=== PATIENT | male | born 1945 | race Caucasian/White ===

== ENCOUNTER → 2018-08-04 | Outpatient (CLI) | payer MEDICARE ==
[2016-01-06 11:00] VITALS: BP 133/60
[~2018-08-04] MED LIST: AMLO5TAB7 PO; AMOX1TAB61 PO; ASPI-630 PO; ATOR40TA59 PO; CALC500T30 PO; CINN500C2 PO; CLOP75TA PO; GABA-585 PO; HYDR-2868 PO; INSU100C4 SQ; LISI-130 PO; MAGN250T10 PO; MULT-18 PO; OMEG500C PO; OXYC1TAB15 PO; RANI300C PO; THYR30TA PO; ZINC100T PO
--- NOTE | 2018-08-06 12:12 | RAD ---
MR#: [id number] Date of Study: 08/04/2018 Ordering Physician: TAISHA VILLALTA, Referring Physician: TAISHA VILLALTA, Tech: SONG Whitman, RDMS, RTR APPROVED REPORT Patient Location: OUT-PATIENT Indications Non-healing Ulcer: RLE BELOW KNEE AMPUTATION Risk Factors Diabetes VELOCITY AND DOPPLER WAVEFORM ANALYSIS RIGHT cm/secWaveformSeverity LEFT cm/secWaveform Severity pCFA 120.3TriphasicpCFA 142.2Biphasic Prof Fem Art. 84.6Prof Fem Art. 75.6 Fem Art Prox. 94.0TriphasicFem Art Prox. 85.7Biphasic Fem Art Mid. 53.8TriphasicFem Art Mid. 82.8Biphasic Fem Art Dist. 60.7TriphasicFem Art Dist. 50.0Triphasic Pop Art(Fossa) 41.8BiphasicPop Art(AK) 76.9Biphasic PROJECT/PRODUCTION MANAGER IMAGING Dist. PROJECT/PRODUCTION MANAGER IMAGING Dist. 42.8Monophasic Per Art Dist.Per Art Dist.26.0Monophasic EULALIO Dist. EULALIO Dist. 98.3Monophasic DPA DPA 50Monophasic Findings Grayscale images of the bilateral lower ext arterial vessels reveal moderate diffuse plaque. There is a previous right lower extremity below-knee amputation. On the right spectral waveforms are mostly t riphasic and biphasic up to the popliteal artery. Velocities are grossly within normal limits. On the left velocities are grossly within normal limits mostly with biphasic waveforms to the poplite al segment. Below the knee there is three-vessel runoff but with significantly diminished flow in the peroneal artery in a monophasic wave pattern. The posterior tibial and anterior tibial vessels also demonstrate monophasic wave pattern likely due to diffuse atherosclerotic disease. No focal high-grad e stenosis is identified. Critical Notification Critical Value: No <Conclusion> 1. No focal high-grade stenosis identified in the bilateral lower extremity arterial Doppler study. 2. Monophasic waveforms in the left lower extremity below-knee vessels likely due to diffuse atherosc lerosis and probable two-vessel runoff. Signed by : Nate Estevez, Electronically Approved : 08/06/2018 12:11:01
== END | disposition home or self-care (01) ==
LOC: US 08:44
PROVIDERS: ATTEND Internal Medicine Cardiovascular Disease
DX: L97.828 Non-pressure chronic ulcer of other part of left lower leg with other specified severity (principal); E11.9 Type 2 diabetes mellitus without complications
CPT/HCPCS: 93925

== ENCOUNTER 2021-02-22 11:11 | Day surgery (SDC) | payer MEDICARE, BC ==
[~2021-02-22] VITALS: Ht 182.9 cm; Wt 113.0 kg
[~2021-02-22 11:11] MED LIST changes: +AMLO-186 PO; -AMLO5TAB7 PO; +APIX5TAB PO; +CARV25TA2 PO; +CLIN300C9 PO; +GABA600T7 PO; +HYDROmorphone 2 MG/ML VIAL IVP PRN; +IV RINGERS,LACTATED 1000ML 1,000 ML IV SCH; +LEVO50TA PO; +LISI20TA18 PO; +MEXI150C PO; +MORPHINE SULFATE 2 MG/ML INJ. IVP PRN; +MULT-505 PO; +MUPI22OI2 TP; +OMEG1CAP6 PO; +PROCHLORPERAZINE 10 MG/2 ML VIAL. IVP PRN; +fentaNYL PF VIAL 100 MCG/2 ML VIAL IVP PRN
[2021-02-22 11:46] VITALS: BP 147/71
[2021-02-22 12:27] LABS: BASO % 1 % (0-3); EOS # 0.2 x10^3/uL (0.0-0.7); EOS % 5 % (0-3); HEMATOCRIT 39.3 % (39.0-53.0); HEMOGLOBIN 13.2 g/dL (13.0-17.5); LYMPH # 1.1 x10^3/uL (1.0-4.8); LYMPH % 22 % (24-48); MEAN CORPUSCULAR HEMOGLOBIN 30 pg (25-35); MEAN CORPUSCULAR HGB CONC 34 g/dL (31-37); MEAN CORPUSCULAR VOLUME 89 fL (79-100); MONO # 0.5 x10^3/uL (0.0-1.1); MONO % 11 % (0-9); NEUT # 2.9 x10^3/uL (1.8-7.7); NEUT % 61 % (31-73); PLATELET COUNT 160 x10^3/uL (140-400); RED BLOOD COUNT 4.43 x10^6/uL (4.30-5.70); RED CELL DISTRIBUTION WIDTH 16.5 % (11.5-14.5); WHITE BLOOD COUNT 4.8 x10^3/uL (4.0-11.0)
[2021-02-22 12:36] LABS: CALCIUM 8.7 mg/dL (8.5-10.1); CREATININE 1.8 mg/dL (0.7-1.3); GFR 36.8; POTASSIUM 4.8 mmol/L (3.5-5.1)
[2021-02-22 12:41] LABS: ALBUMIN 3.7 g/dL (3.4-5.0); ALBUMIN/GLOBULIN RATIO 1.2 (1.0-1.7); C-REACTIVE PROTEIN 1.7 mg/L (0-3.3); TOTAL BILIRUBIN 0.4 mg/dL (0.2-1.0); TOTAL PROTEIN 6.8 g/dL (6.4-8.2)
[2021-02-22] MEDS ORDERED: PROPOFOL 10 MG/ML (20ML) VIAL. IV ONE (12:50)
[2021-02-22] MEDS ORDERED: LIDOCAINE 2% PF 5 ML VIAL. ONE (12:50)
[2021-02-22] MEDS ORDERED: DEXAMETHASONE SOD PHOS 4 MG/ML VIAL ONE ×3 (12:50→13:14)
[2021-02-22] MEDS ORDERED: ONDANSETRON PF 4 MG/2 ML VIAL. ONE (12:50)
[2021-02-22] MEDS ORDERED: fentaNYL PF VIAL 100 MCG/2 ML VIAL ONE (12:52)
--- NOTE | 2021-02-22 12:54 | SSS ---
ADMIT DATE: 02/22/2021 CHIEF COMPLAINT: Request for preoperative evaluation. HISTORY OF PRESENT ILLNESS: The patient is a pleasant 75-year-old male well known to our service. He has got severe peripheral vascular disease from diabetes. He has already had a right below-knee amputation. Now, the left foot is slowly developing disease. The left fourth toe is scheduled to be amputated today. We have been requested for preoperative evaluation and treatment of comorbidities. PAST MEDICAL HISTORY: Right BKA, diabetes, hypertension, hyperlipidemia, arrhythmias, defibrillator, peripheral vascular disease. ALLERGIES: None. FAMILY HISTORY: Diabetes. SOCIAL HISTORY: He is retired. He does not drink, smoke or take drugs. Used to drive heavy equipment. MEDICATIONS: Reviewed, please refer to the MRAD. REVIEW OF SYSTEMS: GENERAL: No history of weight change, weakness or fevers. SKIN: No bruising, hair changes or rashes. EYES: No blurred, double or loss of vision. NOSE AND THROAT: No history of nosebleeds, hoarseness or sore throat. HEART: No history of palpitations, chest pain or shortness of breath on exertion. LUNGS: Denies cough, hemoptysis, wheezing or shortness of breath. GASTROINTESTINAL: Denies changes in appetite, nausea, vomiting, diarrhea or constipation. GENITOURINARY: No history of frequency, urgency, hesitancy or nocturia. NEUROLOGIC: Denies history of numbness, tingling, tremor or weakness. PSYCHIATRIC: No history of panic, anxiety or depression. ENDOCRINE: No history of heat or cold intolerance, polyuria or polydipsia. EXTREMITIES: He complains of left fourth toe pain and drainage. PHYSICAL EXAMINATION: VITALS: Within normal limits and are stable. GENERAL: No apparent distress. Alert and oriented. HEENT: Normal cephalic atraumatic, external auditory canals are patent. EYES: Extraocular muscles are intact, pupils are equally round and reactive to light and accommodation. MUSCULOSKELETAL: Well developed, well nourished, good range of motion. ENDOCRINE: No thyromegaly was palpated. LYMPHATICS: No cervical chain or axillary nodes were noted. HEMATOPOIETIC: No bruising. NECK: Supple, no JVD, no thyromegaly was noted. LUNGS: Clear to auscultation in all lung mora without rhonchi or wheezing. HEART: RRR, S1, S2 present. Peripheral pulses intact, no obvious murmurs were noted. ABDOMEN: Soft, nontender. Positive bowel sounds no organomegaly, normal bowel sounds. EXTREMITIES: The right lower extremity has an amputation below the knee. The left foot is externally rotated. He has got a Charcot joint. The left fourth toe has clean, dry and intact dressing. NEUROLOGIC: Normal speech, normal tone. A and O x 3, moves all extremities, no obvious focal deficits. PSYCHIATRIC: Normal affect, normal mood. Stable. SKIN: No ulcerations or rashes, good skin turgor, no jaundice. VASCULAR: Good capillary refill, neurovascular bundle appears to be intact. ASSESSMENT AND PLAN: Severe peripheral vascular disease secondary to diabetes with left fourth toe wound. Clinically, he is doing well. I suspect he is at low risk for intraoperative or postoperative complications, so he is cleared for surgery. After surgery continue home meds. DVT prophylaxis. Full code. If he needs to be admitted, we can assist with that. If he gets discharged, I would have him see his doctor in a week. KELI DR: Janeth TID: [id number]
[2021-02-22] MEDS ORDERED: POVIDONE-IODINE 10% TOPICAL OINTMENT 28GM TUBE. TP ONE (13:14)
[2021-02-22] MEDS ORDERED: LIDOCAINE 1% Multi-Dose 20 ML VIAL. ONE (13:14)
[2021-02-22] MEDS ORDERED: BUPIVACAINE MPF 0.5% 30 ML VIAL. ONE (13:14)
[2021-02-22] MEDS ORDERED: PHENYLEPHRINE in 0.9% NACL PF 1 MG/10 ML SYRINGE. IV ONE (13:59)
[2021-02-22] MEDS ORDERED: SEVOFLURANE 61 TO 120 MINUTES. IH ONE (13:59)
[2021-02-22] MEDS ORDERED: ePHEDrine PF IN SALINE 50 MG/10 ML SYRINGE. IV ONE (14:02)
--- NOTE | 2021-02-22 14:31 | PDOC4 ---
OPERATIVE NOTE: Surgeon: Jael Pre op diagnosis Osteomyelitis distal phalanx 4th toe left foot Post op diagnosis Same Procedure: distal phalanx resection 4th toe left foot Anesthesia: LMA with local Hemostasis: left ankle tourniquet at 250mmHg EBL 2mL Pathology: distal phalanx 4th toe left foot Patient tolerated both anesthesia and procedure well and transferred to PACU with VSS and VSI to left foot ANIYA TORREZ DPM Feb 22, 2021 14:31
[2021-02-22 14:38] VITALS: BP_DIAS 79
[2021-02-22 14:53] VITALS: BP_SYST 4
--- NOTE | 2021-02-22 15:20 | OP ---
DATE OF SURGERY: 02/22/2021 PREOPERATIVE DIAGNOSIS: Osteomyelitis, fourth digit distal phalanx, left foot. POSTOPERATIVE DIAGNOSIS: Osteomyelitis, fourth digit distal phalanx, left foot. PROCEDURE: Resection of distal phalanx, left foot, fourth toe. SURGEON: Wisam Elder DPM. ANESTHESIA: LMA with local. HEMOSTASIS: Left ankle tourniquet at 250 mmHg. INDICATIONS: The patient is a 75-year-old male with a chronic nonhealing wound to the distal tip of his fourth digit of the left foot. He was being treated with local wound care. X-ray showed concern for resorption of the distal phalanx, distal tuft and he was unable to get an MRI due to his defibrillator. Thus, a CT scan was then ordered and also showed to have questionable osteomyelitis of the fourth distal phalanx. It continued to not heal with local wound care and oral antibiotics. Thus, he was recommended to perform distal phalanx resection with closure of the fourth digit, left foot. Discussed with the patient possible risks, benefits and complications to include loss of toe, foot, limb or life, delayed or nonhealing, need for further surgery, infection, blood clot to the leg, blood clot to the lung, transfer lesion, re-ulceration, numbness, tingling, burning pain, chronic regional pain syndrome. All questions were answered. No guarantees made. DESCRIPTION OF PROCEDURE: The patient was transported to the operating room via cart and placed on the operating table in supine position. He was given IV Ancef preoperatively. The well-padded tourniquet was placed over the left ankle. The left foot was then prepped and draped in the usual aseptic manner. A block was given to the fourth toe consisting of 1:1 mixture of 1% lidocaine plain and 0.25% Marcaine plain, 7 mL total. An Esmarch bandage was used to exsanguinate the left foot and left ankle tourniquet was inflated to 250 mmHg. Reasonable timeout was taken before the injection and attention was directed to the fourth toe where 2 converging semielliptical incisions were made to resect the ulceration at the distal tip of the phalanx including the nail. Next, the distal phalanx was then removed from the distal interphalangeal joint, disarticulated and sent to pathology. Small vessels were cauterized. Next, the cartilage from the middle phalanx was resected to allow for bleeding granular base tissue and sent to pathology for clearance fragment. Wound culture was taken, aerobic and anaerobic, and the wound was then copiously irrigated with sterile saline. The skin was reapproximated with 4-0 nylon. Applied Betadine-soaked Adaptic gauze, 4 x 4s, Kerlix bandage roll, abdominal pad and an Shravan bandage. The patient tolerated anesthesia and procedure well. Tourniquet was deflated and good perfusion was noted to all digits of the left foot. The patient tolerated both anesthesia and procedure well. Postoperative instructions are in the chart. PATY/CESAR DR: Yudith TID: [id number]
--- NOTE | 2021-02-22 16:10 | RAD ---
EXAM: Left foot, 3 views. HISTORY: Postoperative evaluation. COMPARISON: None. FINDINGS: 3 views of the left foot are obtained. There are findings consistent with near complete amp utation of the second distal phalanx. This is likely chronic. The tuft of the fourth distal phalanx i s absent. There is severe midfoot and hindfoot osteoarthritis with bony remodeling. There is a small plantar spur. There are vascular calcifications. There is hyperextension of the fifth metatarsal phal angeal joint. IMPRESSION: 1. Absent tuft of the fourth distal phalanx. This may be due to relative recent amputation or destruc tive osseous changes due to osteomyelitis. 2. Remote amputation of the second distal phalanx. 3. Severe osteoarthritis involving the midfoot and hindfoot with associated bony remodeling. 4. Plantar spur. Electronically signed by: Ingrid Rivera MD (02/22/2021 4:08 PM) [id number]
== END 2021-02-22 15:56 | disposition home or self-care (01) ==
LOC: SURG 11:11
PROVIDERS: ATTEND Podiatrist Foot & Ankle Surgery
DX: M86.8X7 Other osteomyelitis, ankle and foot (principal); I25.10 Atherosclerotic heart disease of native coronary artery without angina pectoris; E78.00 Pure hypercholesterolemia, unspecified; I48.91 Unspecified atrial fibrillation; E66.9 Obesity, unspecified; K21.9 Gastro-esophageal reflux disease without esophagitis; M19.90 Unspecified osteoarthritis, unspecified site; I12.9 Hypertensive chronic kidney disease with stage 1 through stage 4 chronic kidney disease, or unspecified chronic kidney disease; E11.22 Type 2 diabetes mellitus with diabetic chronic kidney disease; N18.30 Chronic kidney disease, stage 3 unspecified; E03.9 Hypothyroidism, unspecified; Z86.73 Personal history of transient ischemic attack (TIA), and cerebral infarction without residual deficits; Z79.84 Long term (current) use of oral hypoglycemic drugs; Z79.899 Other long term (current) drug therapy; Z98.890 Other specified postprocedural states; Z88.8 Allergy status to other drugs, medicaments and biological substances
CPT/HCPCS: 28124; 36415; 73630; 80053; 82962; 85025; 85651; 86140; 87071; 87075; A4209; A4930; A6222; A6253; A6449; J0690; J1100; J2370; J2405; J2704; J3010; J3490; A4657; A6443

== ENCOUNTER 2021-08-23 09:17 | Day surgery (SDC) | payer MEDICARE, BC ==
[~2021-08-23] VITALS: Ht 182.9 cm; Wt 113.0 kg
[~2021-08-23 09:17] MED LIST changes: +AMIO200T53 PO; +AMOX250S20 PO; +CLIN-94 PO; -CLIN300C9 PO; +FURO40TA4 PO; +HYDROmorphone 2 MG/ML INJ. IVP PRN; -HYDROmorphone 2 MG/ML VIAL IVP PRN; +LEVO25TA4 PO; +LINE600T12 PO; +OMEP20CA16 PO; +VANCOMYCIN 1GM IVPB FOR OMNI 250 ML IV PRN
[2021-08-23 10:02] VITALS: BP 144/67
[2021-08-23] MEDS ORDERED: LIDOCAINE 2% PF 5 ML VIAL. ONE (10:06)
[2021-08-23] MEDS ORDERED: PROPOFOL 10 MG/ML (20ML) VIAL. IV ONE (10:06)
[2021-08-23] MEDS ORDERED: DEXAMETHASONE SOD PHOS 4 MG/ML VIAL ONE ×2 (10:06→11:47)
[2021-08-23] MEDS ORDERED: PHENYLEPHRINE in 0.9% NACL PF 1 MG/10 ML SYRINGE. IV ONE (10:06)
[2021-08-23] MEDS ORDERED: ONDANSETRON PF 4 MG/2 ML VIAL. ONE (10:06)
[2021-08-23 10:38] LABS: CALCIUM 8.1 mg/dL (8.5-10.1); GFR 32.5; POTASSIUM 4.1 mmol/L (3.5-5.1)
[2021-08-23 10:44] LABS: ALBUMIN 3.3 g/dL (3.4-5.0); ALBUMIN/GLOBULIN RATIO 0.8 (1.0-1.7); TOTAL BILIRUBIN 0.3 mg/dL (0.2-1.0); TOTAL PROTEIN 7.2 g/dL (6.4-8.2)
[2021-08-23] MEDS ORDERED: LIDOCAINE 1% Multi-Dose 20 ML VIAL. ONE (10:44)
[2021-08-23] MEDS ORDERED: BUPIVACAINE MPF 0.5% 30 ML VIAL. ONE (10:44)
[2021-08-23 10:55] LABS: BASO % 1 % (0-3); EOS # 0.2 x10^3/uL (0.0-0.7); EOS % 3 % (0-3); HEMATOCRIT 36.7 % (39.0-53.0); HEMOGLOBIN 12.3 g/dL (13.0-17.5); LYMPH # 1.1 x10^3/uL (1.0-4.8); LYMPH % 18 % (24-48); MEAN CORPUSCULAR HEMOGLOBIN 31 pg (25-35); MEAN CORPUSCULAR HGB CONC 34 g/dL (31-37); MEAN CORPUSCULAR VOLUME 91 fL (79-100); MONO # 0.5 x10^3/uL (0.0-1.1); MONO % 8 % (0-9); NEUT # 4.5 x10^3/uL (1.8-7.7); NEUT % 71 % (31-73); PLATELET COUNT 181 x10^3/uL (140-400); RED BLOOD COUNT 4.03 x10^6/uL (4.30-5.70); WHITE BLOOD COUNT 6.3 x10^3/uL (4.0-11.0)
--- NOTE | 2021-08-23 12:44 | PDOC4 ---
OPERATIVE NOTE: Surgeon: Jael Pre operative diagnosis: Osteomyelitis distal phalanx 3rd toe left Post operative diagnosis: same Procedure: phalangectomy distal phalanx 3rd toe left Anesthesia: MAC with local Hemostasis: left ankle tourniquet at 250mmHg EBL: 1mL Materials: 4-0 nylon Intraoperative findings: note destruction of distal phalanx 3rd toe with white glistening cartilage to middle phalanx head. no proximal sinus tract. note blood blister to medial planar midfoot with no surrounding cellulitis. Pathology Specimen: Distal phalanx and head of middle phalanx left 3rd toe Patient tolerated both anesthesia and procedure well, transferred to PACU with VSS and VSI to left foot ANIYA TORREZ DPM Aug 23, 2021 12:44
--- NOTE | 2021-08-23 13:37 | OP ---
DATE OF SURGERY: 08/23/2021 PREOPERATIVE DIAGNOSIS: Osteomyelitis, third toe, left foot. POSTOPERATIVE DIAGNOSIS: Osteomyelitis, third toe, left foot. PROCEDURES: Third toe phalangectomy, left. ANESTHESIA: MAC with local. SURGEON: Wisam Elder DPM HEMOSTASIS: Left ankle tourniquet at 250 mmHg. INDICATIONS: The patient is a 76-year-old male with past medical history significant for diabetes, peripheral neuropathy, previous right lower extremity amputation, previous partial digit amputations to the left and peripheral vascular disease. The patient was seen in the clinic 1 week prior and noted to have a full-thickness ulceration with positive probe to bone of the third toe distal phalanx. A bone biopsy was taken and sent for microbiology and pathology showed bone biopsy was positive for osteomyelitis. He is being treated with levofloxacin and now Zyvox p.o. daily and discussed with the patient the possible risks, benefits and complications to include delayed or nonhealing, need for further surgery, loss of toe, foot, limb or life, infection, blood clot to the leg, blood clot to the lung, chronic pain, need for further surgery. The patient understands and agrees with the above procedure. No guarantees made. The patient was also noted to have a new blood blister formation to the medial plantar midfoot. The patient has frequent ulcerations to this area and was just seen yesterday in the [place] location and no ulceration was noted at that time. He states he has been minimal activity; however, his states that he has been very active. DESCRIPTION OF PROCEDURE: The patient was transported to the operating room via cart and placed on the operating room table in supine position. Following verification of the surgery, the patient's limb was performed. A local block was administered to the third toe, left foot consisting of a 1:1 mixture of 1% lidocaine plain and 0.5% Marcaine plain. The well-padded tourniquet was placed over the left ankle and the left foot was then prepped and draped in the usual aseptic manner. To exsanguinate the left lower extremity, the patient's leg was elevated and the tourniquet was inflated to 250 mmHg. Attention was directed to the third toe where a fishmouth incision was made at the level of the distal interphalangeal joint. This was cut out the ulceration to the distal tip and the distal phalanx was disarticulated at the distal interphalangeal joint. It was noted to be absorption of the distal phalanx at the previous biopsy site. The middle phalanx was noted to be white glistening cartilage, resected the cartilage and sent to pathology as well. The wound culture was then taken, aerobic and anaerobic. The wound was copiously irrigated with sterile saline and then the skin was closed with 4-0 nylon. A bandage was applied with Betadine-soaked Adaptic gauze, 4 x 4s, Kerlix bandage, Shravan bandage. Also noted that there was a blood blister to the medial mid foot of the left. At this point, we deroofed the blister and applied Betadine-soaked gauze and wrapped with Kerlix and Shravan bandage. The patient tolerated both anesthesia and procedure well, transported to the PACU in stable condition with vital signs stable and vascular status intact to the left foot. Tourniquet had been deflated prior to closure as we noted there was a venous tourniquet with bleeding upon removal, achieve hemostasis and closure was successful. Postop instructions are in the chart. DOUGLAS DR: Yudith TID: [id number]
[2021-08-23 13:41] VITALS: BP 132/70
--- NOTE | 2021-08-23 14:52 | RAD ---
EXAM: Left foot, 3 views. HISTORY: Postoperative evaluation. COMPARISON: 03/28/2021 FINDINGS: 3 views of the left foot are obtained. There has been amputation of the second toe at the b ase of the middle phalanx. There has been amputation of the third toe at the mid aspect of the middle phalanx. There has been amputation of the fourth phalanx at the mid middle phalanx. There is bandage material overlying the third and fourth toes. There is severe midfoot degenerative subchondral scler osis, spurring and bony remodeling. There is a small plantar spur. There are vascular calcifications. IMPRESSION: 1. Interval amputation of the third toe at the mid aspect of the middle phalanx. There are prior limi tations of the second and fourth toes at the mid middle phalanges. 2. Severe hindfoot and midfoot osteoarthritis with associated bony remodeling. 3. Small plantar spur. Electronically signed by: Ingrid Rivera MD (08/23/2021 2:49 PM) [id number]
--- NOTE | 2021-08-28 18:11 | PATHOLOGY ---
[facility] Accession Number: [id number] . 01 Material submitted: . toe - LEFT PARTIAL 3RD TOE. Modifiers: left, third . 01 Clinical history: . OSTEOMYLITIS PARTIAL 3RD TOE AMPUTATION . 02 Diagnosis: Distal toe and separate segments of bone, partial third toe amputation: - Focal ulceration of distal toe with underlying acute cellulitis and acute osteomyelitis of distal phalangeal bone. - Separate detached segments of head of middle phalangeal bone show a focal reactive bone formation and marrow fibrosis; negative for acute osteomyelitis. (JPM:[facility] 08/28/2021) QTP 08/28/2021 1329 Local . 02 Electronically signed: . Kiet Beverly MD, Pathologist NPI- [id number] . 01 Gross description: . Received in formalin labeled "Connor Sanz, left partial third toe" is an irregular excision of rosado-white skin and underlying soft tissue measuring 2.1 x 1.7 x 1.0 cm, which displays a rosado-yellow possible nail measuring 1.3 x 0.7 x 0.2 cm. The specimen displays a yellow-rosado roughening/discoloration measuring 2.3 x 1.3 x 0.7 cm, which abuts the resection margins. The margin is inked black. Material Handling Supervisor cross-sections are submitted in cassette A1. Also present within the container are 3 fragments of rosado-brown irregular bone measuring in aggregate 1.5 x 1.3 x 0.6 cm. The bone fragments are decalcified, sectioned, and submitted entirely in A2. (SK; 08/26/2021) SYC/SYC 08/26/2021 0757 Local . 02 Pathologist provided ICD-10: L97.529, L03.032, M86.172 . 02 CPT . 064511, 369132 Specimen Comment: A courtesy copy of this report has been sent to [phone] Specimen Comment: Report sent to Performed at: 01 [facility] [address] [id number] MD Joseph Kingsley MD Phone: [phone] Performed at: 02 [facility] [address] [place], [place] [id number] MD Kiet Beverly MD Phone: [phone]
== END 2021-08-23 14:17 | disposition home or self-care (01) ==
LOC: SURG 09:17
PROVIDERS: ATTEND Podiatrist Foot & Ankle Surgery
DX: M86.8X7 Other osteomyelitis, ankle and foot (principal); M19.072 Primary osteoarthritis, left ankle and foot; I25.10 Atherosclerotic heart disease of native coronary artery without angina pectoris; I10 Essential (primary) hypertension; I48.91 Unspecified atrial fibrillation; E78.00 Pure hypercholesterolemia, unspecified; E66.9 Obesity, unspecified; E11.9 Type 2 diabetes mellitus without complications; E03.9 Hypothyroidism, unspecified; Z86.73 Personal history of transient ischemic attack (TIA), and cerebral infarction without residual deficits; Z79.899 Other long term (current) drug therapy; Z79.82 Long term (current) use of aspirin; Z79.84 Long term (current) use of oral hypoglycemic drugs; Z98.890 Other specified postprocedural states; Z88.8 Allergy status to other drugs, medicaments and biological substances
CPT/HCPCS: 28150; 36415; 73630; 80053; 85025; 87071; 87075; 88305; 88311; A4930; A6222; A6402; A6449; J2370; J2405; J2704; J3370; J3490; A6443; J1100